=== PATIENT | female | born 2000 | race Caucasian/White ===

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

== ENCOUNTER 2021-04-04 05:47 | Emergency (ER) | payer MEDICAID ==
[~2021-04-04] VITALS: Ht 172.7 cm; Wt 68.0 kg
[~2021-04-04 05:47] MED LIST: ANTIBIOTIC; ZANTAC300 MG PO
[2021-04-04 05:51] VITALS: BP 134/83; Ht 172.7 cm; Wt 68.0 kg
== END 2021-04-05 06:33 | disposition home or self-care (01) ==
LOC: D.ER 05:47
DX: R07.0 Pain in throat (principal); G89.29 Other chronic pain